=== PATIENT | female | born 1975 | race Caucasian/White ===

== ENCOUNTER 2023-05-13 07:59 | Outpatient (CLI) | payer BC, SELFPAY | END 2023-05-13 08:00 | disposition home or self-care (01) | LOC: NFLDREF 20:45 | PROVIDERS: PCP Physician Assistant Medical; Referring Provider Physician Assistant Medical; Visit Provider Physician Assistant Medical | DX: E03.9 Hypothyroidism, unspecified (principal) | CPT/HCPCS: 84439; 84443 ==

== ENCOUNTER 2023-08-09 07:29 | Outpatient (CLI) | payer BC, SELFPAY | END 2023-08-09 07:30 | disposition home or self-care (01) | LOC: NFLDREF 08-10 21:06 | PROVIDERS: PCP Physician Assistant Medical; Referring Provider Physician Assistant Medical; Visit Provider Physician Assistant Medical | DX: E03.9 Hypothyroidism, unspecified (principal) | CPT/HCPCS: 84439; 84443 ==

== ENCOUNTER 2023-11-08 16:11 | Outpatient (CLI) | payer BC, SELFPAY ==
--- NOTE | 2023-11-08 16:40 | CRLHL7_ITS ---
For Patients: As a result of the Century Cures Act, medical imaging exams and procedure reports are released immediately into your electronic medical record. You may view this report before your referring provider. If you have questions, please contact your health care provider. BILATERAL SCREENING MAMMOGRAM WITH COMPUTER-AIDED DETECTION TECHNIQUE: CC and MLO views were obtained. These mammographic images have been obtained using full-field digital technique. These mammographic images were interpreted with the benefit of computer-aided detection. COMPARISON FILM: 02/28/18. FINDINGS: The breasts are almost entirely fatty IMPRESSION: There is no radiographic evidence for malignancy. ASSESSMENT: BI-RADS Category 1: Negative RECOMMENDATION: Routine screening mammogram in 1 year. A lay language report of this examination will be provided to the patient. DAMEON LUO M.D. Diagnostic/Nuclear Medicine Radiologist [email or web address] BACILIO:[email or web address] Transcribed: 2:50 p.mBetty hansen/Dictated by: Dameon Luo MD @ 11/10/2023 9:13:00 AM (Electronically Signed)
== END 2023-11-08 16:12 | disposition home or self-care (01) ==
LOC: MAMMO 16:11
PROVIDERS: PCP Physician Assistant Medical; Visit Provider Physician Assistant Medical
DX: Z12.31 Encounter for screening mammogram for malignant neoplasm of breast (principal)
CPT/HCPCS: 77067

== ENCOUNTER 2024-10-18 08:28 | Outpatient (CLI) | payer OTHER, SELFPAY | END 2024-10-18 08:29 | disposition home or self-care (01) | PROVIDERS: PCP Physician Assistant Medical; Visit Provider Physician Assistant Medical | DX: E03.9 Hypothyroidism, unspecified (principal); Z13.220 Encounter for screening for lipoid disorders; Z13.228 Encounter for screening for other metabolic disorders | CPT/HCPCS: 80053; 80061; 84443 ==

== ENCOUNTER 2025-02-20 16:40 | Outpatient (CLI) | payer OTHER, SELFPAY ==
--- NOTE | 2025-02-20 17:15 | CRLHL7_ITS ---
For Patients: As a result of the Century Cures Act, medical imaging exams and procedure reports are released immediately into your electronic medical record. You may view this report before your referring provider. If you have questions, please contact your health care provider. Indication: Left knee pain Technique: Grayscale and color Doppler ultrasound of the left medial knee soft tissues performed. Comparison: Left knee x-rays 01/28/2025 Findings: Fluid collection is present within the medial posterior knee measuring 5.0 x 1.4 x 4.0 cm. No abnormal vascularity. Impression: Popliteal cyst versus bursal fluid collection measuring 5.0 x 1.4 x 4.0 cm. Dictated by Selvin Martinez MD @ 02/21/2025 9:10:19 AM (Electronically Signed)
== END 2025-02-20 16:41 | disposition home or self-care (01) ==
LOC: US 16:41
PROVIDERS: PCP Physician Assistant Medical; Visit Provider Physician Assistant Medical
DX: M25.562 Pain in left knee (principal)
CPT/HCPCS: 76882